=== PATIENT | female | born 1945 | race Caucasian/White ===

== ENCOUNTER → 2019-11-04 13:41 | Outpatient (CLI) | payer MEDICARE, BC, SELFPAY ==
--- NOTE | ~2019-11-04 | XR_ITS ---
EXAMINATION: XR lumbar spine min 4V EXAM DATE: 11/04/2019 14:08 INDICATION: Spondylolisthesis, lumbar region. Radiculopathy. TECHNIQUE: Lumber spine frontal, lateral, lateral L5-S1 projections for interpretation. Additional l ateral flexion and lateral extension projections obtained. There are no prior studies for comparison. FINDINGS: L5-S1 interbody fusion. There is mild to moderate disc disease L4-5 with 3 mm anterolisthe sis on all the lateral projections. The vertebral bodies are otherwise aligned. There is mild disc di sease at the other lumbar levels. There is moderate lumbar facet arthropathy. There is aortic arteria l sclerosis. Sacrum, sacroiliac joints, sacral arcuate lines are intact. Paraspinal soft tissue is un remarkable. There are no acute fractures identified. IMPRESSION: 1. L5-S1 interbody fusion. 2. L4-5 grade 1 anterolisthesis. 3. Moderate lumbar facet arthropathy. Reviewed, dictated and finalized at location A.
== END ==
DX: M43.16 Spondylolisthesis, lumbar region (principal)
CPT/HCPCS: 72110

== ENCOUNTER → 2021-04-04 10:09 | Outpatient (CLI) | payer MEDICARE, BC, SELFPAY ==
--- NOTE | ~2021-04-04 | MR_ITS ---
EXAMINATION: MR lumbar spine wo con DATE: 04/04/2021 11:19 INDICATION: Lumbar radiculopathy. Low back pain. TECHNIQUE: Magnetic resonance imaging (MRI) of the lumbar spine was performed without intravenous con trast. Sequences included sagittal T2-weighted FSE, sagittal STIR FSE, sagittal T1-weighted FSE, and axial T2-weighted FSE. COMPARISON: Lumbar spine MRI 09/16/2019 FINDINGS: There is 5 degrees levocurvature of lumbar spine. There is 3 mm anterolisthesis of L4 on L5 . Vertebral body heights are normal. There are changes of anterior fusion procedure at L5-S1. Interve rtebral disc heights are normal. The distal spinal cord signal intensity is normal. The conus medulla ris is at T12-L1. The following disc levels are specifically discussed: L1-L2: The disc is mildly bulging. There is moderate bilateral facet joint osteoarthritis. There is m ild bilateral neural foraminal stenosis. There is mild central canal stenosis. L2-L3: The disc is bulging and has an annular fissure. There is severe bilateral facet joint osteoart hritis. There is hypertrophy of the ligamentum flavum. There is moderate right and mild left neural f oraminal stenosis. There is mild central canal stenosis. L3-L4: The disc is mildly bulging. There is severe bilateral facet joint osteoarthritis. There is mil d bilateral neural foraminal stenosis. There is no central canal stenosis. L4-L5: The disc does not extend beyond the endplate margin. There is severe bilateral facet joint ost eoarthritis. There is hypertrophy of the ligamentum flavum. There is mild bilateral neural foraminal stenosis. There is mild central canal stenosis. L5-S1: There is no facet joint hypertrophy. There is no neural foraminal stenosis. There is no centra l canal stenosis. IMPRESSION: 1. Mild lumbar spondylosis, stable from 09/16/2019. 2. Anterior fusion procedure at L5-S1. Reviewed, dictated and finalized at location A.
--- NOTE | ~2021-04-04 | XR_ITS ---
EXAMINATION: XR sacroiliac joints min 3V INDICATION: Sacroiliac joint pain TECHNIQUE: Three views of the sacroiliac joints are obtained. COMPARISON: 11/04/2019 FINDINGS: Bone alignment is normal. There is no fracture. No abnormal sclerosis or erosion is identif ied. There are changes of interbody fusion at L5-S1. IMPRESSION: 1. Unremarkable sacroiliac joints. Reviewed, dictated and finalized at location B.
== END ==
PROVIDERS: Visit Provider Nurse Practitioner Family
DX: M47.26 Other spondylosis with radiculopathy, lumbar region (principal); Z98.1 Arthrodesis status
CPT/HCPCS: 72148; 72202

== ENCOUNTER → 2021-10-13 08:08 | Outpatient (CLI) | payer MEDICARE, BC, SELFPAY ==
--- NOTE | ~2021-10-13 | US_ITS ---
US abdomen complete DATE: 10/13/2021 08:35 INDICATION: Abnormal blood chemistry findings TECHNIQUE: Real-time imaging and Doppler analysis of the abdomen COMPARISON: 02/28/2019 CT chest abdomen FINDINGS: No hepatic space-occupying mass lesion is evident. Normal hepatopedal portal venous flow di rection. The pancreas is partially obscured by bowel gas, not optimally evaluated. No gallstones or gallbladder wall thickening or pericholecystic fluid collection. Negative sonographi c Mccrary's sign. The common bile duct measures 3.4 mm, within normal limits. No renal mass lesion or hydronephrosis. Each kidney measures of the left 10 cm vertical dimension. Th e spleen measures within upper limits of normal size. Normal caliber of the abdominal aorta. The inferior vena cava is unremarkable. IMPRESSION: Limited evaluation of pancreas; otherwise unremarkable examination Reviewed, dictated and finalized at Location A. Reviewed, dictated and finalized at location B. [employer]
== END ==
PROVIDERS: PCP Internal Medicine; Visit Provider Internal Medicine
DX: R79.89 Other specified abnormal findings of blood chemistry (principal)
CPT/HCPCS: 76700

== ENCOUNTER → 2022-02-02 08:38 | Outpatient (CLI) | payer MEDICARE, BC, SELFPAY ==
--- NOTE | ~2022-02-02 | XR_ITS ---
EXAMINATION: XR hip LT min 3V w AP pelvis DATE: 02/02/2022 09:21 INDICATION: Left hip pain. TECHNIQUE: An anteroposterior pelvis and 2 views of left hip were obtained. COMPARISON: Sacroiliac joint radiographs 04/04/2021 FINDINGS: Bone alignment is normal. No fracture. There are changes of anterior fusion procedure at L5 -S1 with interbody devices. There is mild left hip osteoarthritis with tiny osteophytes. IMPRESSION: 1. Mild left hip osteoarthritis. Reviewed, dictated and finalized at location A.
== END ==
PROVIDERS: PCP Internal Medicine; Visit Provider Internal Medicine
DX: M16.12 Unilateral primary osteoarthritis, left hip (principal)
CPT/HCPCS: 73502

== ENCOUNTER 2022-02-15 13:43 | Outpatient (CLI) | payer MEDICARE, BC, SELFPAY ==
--- NOTE | ~2022-02-15 | US_ITS ---
EXAMINATION: US arterial ankle brachial ind DATE: 02/15/2022 14:44 INDICATION: Claudication. Peripheral vascular disease risk factors of diabetes, hypertension, hyperch olesterolemia and prior smoking. TECHNIQUE: Segmental pressures and plethysmographic and Doppler waveforms of the brachial and lower e xtremity arteries were obtained. COMPARISON: None. FINDINGS: Right and left brachial artery pressures of 138 mm Hg and 138 mm Hg, respectively, are concordant (no rmal difference <= 30 mmHg). The right ankle-brachial index (MALIKA) is 1.09 (normal >= 0.9-1.0). The right great toe-brachial index (TBI) is 0.59 (normal >= 0.65). Arterial Doppler waveforms are biphasic with brisk systolic upstrokes at both right posterior tibial and dorsalis pedis arteries. The left MALIKA is 1.03. The left TBI is 0.49. Arterial Doppler waveforms are biphasic with brisk systol ic upstrokes at both left posterior tibial and dorsalis pedis arteries. IMPRESSION: 1. Mild arterial occlusive disease to the bilateral lower limbs with normal bilateral ABIs but mildly decreased bilateral TBIs. Reviewed, dictated and finalized at location B. IMPRESSION: 1. Mild arterial occlusive disease to the bilateral lower limbs with normal bear ateral ABIs but mildly decreased bilateral TBIs.
== END 2022-02-15 13:44 | disposition home or self-care (01) ==
PROVIDERS: PCP Internal Medicine; Visit Provider Internal Medicine
DX: E11.59 Type 2 diabetes mellitus with other circulatory complications (principal); I73.9 Peripheral vascular disease, unspecified
CPT/HCPCS: 93922

== ENCOUNTER → 2022-03-31 14:15 | Outpatient (CLI) | payer MEDICARE, BC, SELFPAY ==
--- NOTE | ~2022-03-31 | XR_ITS ---
XR foot LT min 3V DATE: 03/31/2022 14:41 INDICATION: Left foot pain TECHNIQUE: Weightbearing AP, lateral, bilateral oblique views COMPARISON: None FINDINGS: Osteopenia. Mild posterior calcaneal enthesopathy. No fracture or dislocation, periosteal reaction or bone destruction. No erosive change. IMPRESSION: Osteopenia Mild posterior calcaneal enthesopathy Reviewed, dictated and finalized at location B.
== END ==
PROVIDERS: PCP Internal Medicine; Visit Provider Podiatrist Foot & Ankle Surgery
DX: M85.872 Other specified disorders of bone density and structure, left ankle and foot (principal); M77.32 Calcaneal spur, left foot
CPT/HCPCS: 73630

== ENCOUNTER → 2022-06-05 13:27 | Outpatient (CLI) | payer MEDICARE, BC, SELFPAY ==
--- NOTE | ~2022-06-05 | XR_ITS ---
EXAM: XR ankle RT min 3V, XR foot RT min 3V DATE: 06/05/2022 14:09 HISTORY: Ankle pain, right foot pain. COMPARISON: None available. FINDINGS: Decreased mineralization. Cortical irregularity and subchondral cyst formation in the medi al talar dome. No fracture or dislocation. No lytic or blastic lesion. Joint spaces are maintained. N o erosion or periosteal change. Soft tissues within normal limits. IMPRESSION: Osteopenia. Possible medial talar osteochondral lesion. Reviewed, dictated and finalized at location K. IMPRESSION: Osteopenia. Possible medial talar osteochondral lesion.
== END ==
PROVIDERS: PCP Internal Medicine; Visit Provider Podiatrist Foot & Ankle Surgery
DX: M79.671 Pain in right foot (principal); M85.871 Other specified disorders of bone density and structure, right ankle and foot
CPT/HCPCS: 73610; 73630

== ENCOUNTER → 2022-11-03 13:30 | Outpatient (CLI) | payer MEDICARE, BC, SELFPAY ==
--- NOTE | ~2022-11-03 | MMUS_ITS ---
EXAMINATION: MM diagnostic arely BI w jose, US breast RT limited HISTORY: Right breast pain TECHNIQUE: Craniocaudal, mediolateral, and mediolateral oblique 3-D tomosynthesis images of the breas ts were performed and synthetic 2-D images were generated. CAD analysis was submitted and interpreted . High resolution limited right breast ultrasound was performed. COMPARISON: 03/17/2013, 03/05/2013, 02/26/2012 BREAST PARENCHYMAL COMPOSITION: The breasts are heterogeneously dense, which may obscure small masses . FINDINGS: MAMMOGRAPHIC FINDINGS: No suspicious mass, calcification, or architectural distortion are identified in either breast to sug gest malignancy. There has been no suspicious interval change. No mammographic correlate is identifie d for the reported right breast pain. ULTRASOUND: There is no evidence of focal abnormal solid or cystic mass in the vicinity of the patient's reported right breast pain. IMPRESSION: 1. No specific mammographic or sonographic correlate is identified for the patient's right breast lilibeth n. Further evaluation at this time should be based on clinical assessment. Continued follow-up physic al examination is recommended. 2. Recommend routine screening mammography in one year. BI-RADS Category 1: Negative Reviewed, dictated and finalized at location A. E CANDY MAKER IMPRESSION: 1. No specific mammographic or sonographic correlate is identified for the holland ent's right breast pain. Further evaluation at this time should be based on cli nical assessment. Continued follow-up physical examination is recommended. 2. Recommend routine screening mammography in one year. BI-RADS Category 1: Negative
== END ==
PROVIDERS: PCP Registered Nurse; Visit Provider Registered Nurse
DX: N64.4 Mastodynia (principal)
CPT/HCPCS: 76642; 77062; 77066; G0279

== ENCOUNTER → 2023-06-25 12:37 | Outpatient (CLI) | payer MEDICARE, BC, SELFPAY ==
--- NOTE | ~2023-06-25 | CT_ITS ---
EXAMINATION: CT abdomen pelvis wo con DATE: 06/25/2023 12:53 INDICATION: Acute right sided abdominal pain, low back pain TECHNIQUE: Computed tomography (CT) of the abdomen and pelvis was performed without intravenous contr ast. Automated exposure control and iterative reconstruction technique were employed. Exam dose: 682 .63 mGy-cm total exam DLP. COMPARISON: October 13, 2021 complete abdominal ultrasound examination February 28, 2019 CT chest abdomen pelvis FINDINGS: The lung bases are clear of infiltrate or consolidation. Heart size is within normal range. No pericardial or pleural effusion. The gallbladder is present. No gallbladder wall thickening or pericholecystic fluid or fat stranding. No bile duct or pancreatic duct dilatation. There is some thick linear calcification along the superolateral splenic capsule, benign. No splenome krista. The liver and spleen, pancreas, and adrenal glands and kidneys appear otherwise unremarkable on this limited noncontrast examination with the exception of a probable mildly exophytic 9 mm posterior uppe r pole right renal cyst. No urinary tract calculus or hydroureteronephrosis. There is extensive abdominal aortic calcification but no abdominal aortic aneurysm. No intraperitonea l or retroperitoneal or pelvic mass lesion or adenopathy or ascites is detected. Normal appendix. There are multiple diverticula of the sigmoid colon; no CT evidence of diverticuliti s. No bowel obstruction, bowel wall thickening, pneumatosis or intraperitoneal free air. Small fat-containing umbilical hernia. The urinary bladder is unremarkable. Status post hysterectomy. Old healed bilateral rib fractures. Status post interbody spine final surgical fusion at L5-S1. Moderately prominent compression fracture deformity of L1. There is degenerative change at the apophyseal joints of the lumbar spine with associated grade 1 ant erolisthesis at L4-5. No suspicious osteolytic or osteoblastic lesions are noted. IMPRESSION: Normal appendix Diverticulosis of the sigmoid colon; no CT evidence of diverticulitis Moderately prominent compression fracture of L1 Status post interbody surgical fusion at L5-S1 9 mm superior pole right renal probable cyst Reviewed, dictated and finalized at Location A. Reviewed, dictated and finalized at location B.
== END ==
PROVIDERS: PCP Internal Medicine Cardiovascular Disease; Visit Provider Registered Nurse
DX: M54.50 Low back pain, unspecified (principal); R10.9 Unspecified abdominal pain; K57.30 Diverticulosis of large intestine without perforation or abscess without bleeding; N28.1 Cyst of kidney, acquired
CPT/HCPCS: 74176

== ENCOUNTER → 2023-07-06 13:47 | Outpatient (CLI) | payer MEDICARE, BC, SELFPAY ==
--- NOTE | ~2023-07-06 | MR_ITS ---
EXAMINATION: MR lumbar spine wo con DATE: 07/06/2023 14:42 INDICATION: Wedge compression fracture of first lumbar vertebra. Low back pain. TECHNIQUE: Magnetic resonance imaging (MRI) of the lumbar spine was performed without intravenous con trast. COMPARISON: Lumbar spine MRI 04/04/2021, CT abdomen and pelvis 06/25/2023 FINDINGS: There is 3 mm anterolisthesis of L4 on L5. There is a compression fracture of L1 with 2/5 l oss of height centrally and edema-like marrow signal intensity. Intervertebral disc heights are gerardo l. The distal spinal cord signal intensity is normal. The conus medullaris is at T12. The following d isc levels are specifically discussed: L1-L2: The disc is bulging. There is severe bilateral facet joint osteoarthritis. There is mild bilat eral neural foraminal stenosis. There is mild central canal stenosis. L2-L3: The disc is bulging and has an annular fissure. There is severe bilateral facet joint osteoart hritis. There is mild bilateral neural foraminal stenosis. There is mild central canal stenosis. L3-L4: The disc is bulging. There is severe bilateral facet joint osteoarthritis. There is mild bilat eral neural foraminal stenosis. There is no central canal stenosis. L4-L5: The disc does not extend beyond the endplate margin. There is severe bilateral facet joint ost eoarthritis. There is mild bilateral neural foraminal stenosis. There is no central canal stenosis. L5-S1: The disc does not extend beyond the endplate margin. There is no facet joint osteoarthritis. T here is no neural foraminal stenosis. There is no central canal stenosis. IMPRESSION: 1. Subacute L1 compression fracture, stable from 06/25/2023. 2. Mild lumbar spondylosis. 3. Anterior fusion procedure at L5-S1. Reviewed, dictated and finalized at location E. K YARD HAND
== END ==
PROVIDERS: PCP Registered Nurse; Visit Provider Nurse Practitioner Family
DX: M47.896 Other spondylosis, lumbar region (principal); Z98.1 Arthrodesis status; S32.010D Wedge compression fracture of first lumbar vertebra, subsequent encounter for fracture with routine healing; X58.XXXD Exposure to other specified factors, subsequent encounter
CPT/HCPCS: 72148

== ENCOUNTER 2024-06-27 13:02 | Outpatient (CLI) | payer MEDICARE, BC, SELFPAY ==
--- NOTE | ~2024-06-27 | US_ITS ---
Renal-Bladder ultrasound Clinical History: Diabetes Technique: Real-time sonographic imaging of the kidneys and urinary bladder was performed. Findings: The right kidney measures 9.4 cm in length and the left kidney measures 10.5 cm. There is n o hydronephrosis or renal calculus identified. Renal cortical echogenicity is within mildly increased . No renal mass lesion is identified. The urinary bladder is moderately distended at the time of this exam. No intraluminal echoes are iden tified. No abnormal wall thickening is seen. Impression: Mildly echogenic kidneys suggest chronic medical renal disease. No hydronephrosis. Reviewed, dictated and finalized at location . [employer] Impression: Mildly echogenic kidneys suggest chronic medical renal disease. No hydronephros is.
== END 2024-06-27 13:03 | disposition home or self-care (01) ==
LOC: MICIMG 13:04
PROVIDERS: PCP Registered Nurse; Referring Provider Internal Medicine Cardiovascular Disease; Visit Provider Internal Medicine Nephrology
DX: E11.29 Type 2 diabetes mellitus with other diabetic kidney complication (principal); I12.9 Hypertensive chronic kidney disease with stage 1 through stage 4 chronic kidney disease, or unspecified chronic kidney disease; N18.32 Chronic kidney disease, stage 3b
CPT/HCPCS: 76775

== ENCOUNTER 2025-02-04 15:07 | Outpatient (CLI) | payer MEDICARE, BC, SELFPAY ==
--- NOTE | ~2025-02-04 | XR_ITS ---
Right foot Technique: AP, oblique, and lateral views were obtained. Clinical History: Fracture Findings: Suspected oblique nondisplaced fracture of the third proximal phalanx.. Joint spaces are pr eserved without erosive or degenerative change. Soft tissues are unremarkable. Impression: Suspected oblique nondisplaced fracture of the third proximal phalanx. Correlate for point tenderness . Reviewed, dictated and finalized at location . Impression: Suspected oblique nondisplaced fracture of the third proximal phalanx. Correlat e for point tenderness.
== END 2025-02-04 15:08 | disposition home or self-care (01) ==
LOC: MICIMG 15:08
PROVIDERS: PCP Internal Medicine Endocrinology, Diabetes & Metabolism; Visit Provider Internal Medicine Endocrinology, Diabetes & Metabolism
DX: M79.671 Pain in right foot (principal)
CPT/HCPCS: 73630